=== PATIENT | female | born 1960 | race Caucasian/White ===

== ENCOUNTER 2019-10-09 12:06 | Emergency (ER) | payer BC ==
[2019-10-09] MEDS ORDERED: KETOROLAC TROMETHAMINE 30MG/ML ONE (13:15)
== END 2019-10-09 14:35 | disposition home or self-care (01) ==
LOC: EDH 12:06
DX: S62.102A Fracture of unspecified carpal bone, left wrist, initial encounter for closed fracture (principal); F32.9 Major depressive disorder, single episode, unspecified; W18.30XA Fall on same level, unspecified, initial encounter; Y93.73 Activity, racquet and hand sports; Y92.39 Other specified sports and athletic area as the place of occurrence of the external cause; Y99.8 Other external cause status
CPT/HCPCS: 29125; 73110; 96372; 99284; J1885